=== PATIENT | male | born 1925 | race Caucasian/White ===

== ENCOUNTER → 2016-07-01 | Outpatient (CLI) | payer MEDICARE, BC ==
[~2016-07-01] MED LIST: ALLO300T74 PO; ASPI-623 PO; FINA5TAB30 PO; IOHEXOL 180 MG/ML 20ml INJECTION ONE; LIDOCAINE 1% (10mg/ml) 5ml VIAL ONE; METO25TA41 PO; MethylPREDNISolone ACETATE 40mg/1ml ONE; PRAV40TA44 PO
--- NOTE | 2016-07-01 09:05 | DI ---
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 The patient has had a previous epidural that provided moderate relief. The details of the procedure, including the benefits, risks, and alternatives were explained to the patient. All of their questions were answered. They stated that they understood and wished to proceed. Informed consent was then obtained. A pre-procedural timeout was performed to confirm the correct patient and procedure. Utilizing aseptic technique, local lidocaine anesthetic, and fluoroscopic guidance throughout, a 22-gauge spinal needle was directed into the lumbar epidural space via an interlaminar approach at the L5-S1 level. Contrast was injected to assure proper positioning of the needle tip. A fluoroscopic image was then taken and archived. Subsequently, 120 mg Depo-Medrol was injected into the epidural space. The patient tolerated the procedure well. IMPRESSION: Successful lumbar epidural steroid injection. Fluoroscopy dose: 12.19 mGy (Cumulative air kerma) Surya Robles RPA/CHRISTOPHER performed this under my personal supervision. .
== END ==
LOC: IMA 08:20
PROVIDERS: ATTEND Physician Assistant Surgical
DX: M48.06 Spinal stenosis, lumbar region (principal)
CPT/HCPCS: 62323; J1030; Q9965